=== PATIENT | male | born 1935 | race Two or more races ===

== ENCOUNTER 2017-10-01 13:18 | Outpatient (CLI) | payer OTHER ==
[~2017-10-01 13:18] MED LIST: CELEXA10 MG; GLUCOPHAGE XR500 MG; LEVAQUIN750 MG PO; LOTREL 10-20 M1 EACH; LOTREL 10/20 CA1 CAP; METFORMIN HCL500 MG; NEURONTIN800 MG; SYNTHROID100 MCG; TAMSULOSIN HCL0.4 MG PO
== END 2017-10-01 15:46 | disposition home or self-care (01) ==
LOC: RAD 501 13:18
DX: S40.012D Contusion of left shoulder, subsequent encounter (principal)

== ENCOUNTER 2017-10-17 14:02 | Emergency (ER) | payer OTHER ==
[~2017-10-17] VITALS: Ht 170.2 cm; Wt 85.3 kg
[2017-10-17] MEDS ORDERED: CLONAZEPAM1 M1 (14:47)
[2017-10-17] MEDS ORDERED: KETO10TA2 PO (18:32)
== END 2017-10-17 20:10 | disposition home or self-care (01) ==
LOC: ER 14:02
DX: M54.32 Sciatica, left side (principal)

== ENCOUNTER 2017-10-20 16:39 | Emergency (ER) | payer OTHER ==
[~2017-10-20] VITALS: Ht 152.4 cm; Wt 83.5 kg
[~2017-10-20 16:39] MED LIST changes: +CLONAZEPAM1 M1; +KETO10TA2 PO
== END 2017-10-20 21:00 | disposition home or self-care (01) ==
LOC: ER 16:39
DX: M51.27 Other intervertebral disc displacement, lumbosacral region (principal)

== ENCOUNTER 2019-02-10 11:45 | Emergency (ER) | payer OTHER ==
[~2019-02-10] VITALS: Ht 170.2 cm; Wt 74.4 kg
[2019-02-10] MEDS ORDERED: PROSCAR5 MG PO (12:42)
[2019-02-10] MEDS ORDERED: REQUIP4 MG PO (12:42)
[2019-02-10] MEDS ORDERED: ABILIFY2 MG PO (12:42)
[2019-02-10] MEDS ORDERED: [UNRECOGNIZED DRUG - OTHER] (12:43)
== END 2019-02-10 15:58 | disposition home or self-care (01) ==
LOC: ER 11:45
DX: S22.42XA Multiple fractures of ribs, left side, initial encounter for closed fracture (principal); M54.5 Low back pain; S30.0XXS Contusion of lower back and pelvis, sequela; W18.09XS Striking against other object with subsequent fall, sequela

== ENCOUNTER 2019-10-24 17:28 | Emergency (ER) | payer OTHER ==
[~2019-10-24] VITALS: Ht 170.2 cm; Wt 90.7 kg
[~2019-10-24 17:28] MED LIST changes: +ABILIFY2 MG PO; +PROSCAR5 MG PO; +REQUIP4 MG PO; +[UNRECOGNIZED DRUG - OTHER]
[2019-10-24] MEDS ORDERED: SYNTHROID137 MCG (17:55)
[2019-10-24] MEDS ORDERED: TRAZODONE HCL150 MG (17:56)
[2019-10-24] MEDS ORDERED: IPRATROPIU0.2 MG/1 M (17:57)
== END 2019-10-24 21:21 | disposition home or self-care (01) ==
LOC: ER 17:28
DX: E86.0 Dehydration (principal); R53.1 Weakness; G30.8 Other Alzheimer's disease; F02.80 Dementia in other diseases classified elsewhere, unspecified severity, without behavioral disturbance, psychotic disturbance, mood disturbance, and anxiety; Z86.73 Personal history of transient ischemic attack (TIA), and cerebral infarction without residual deficits

== ENCOUNTER 2020-01-30 11:16 | Emergency (ER) | payer OTHER ==
[~2020-01-30] VITALS: Ht 170.2 cm; Wt 74.4 kg
[~2020-01-30 11:16] MED LIST changes: +IPRATROPIU0.2 MG/1 M; +SYNTHROID137 MCG; +TRAZODONE HCL150 MG
== END 2020-01-30 21:04 | disposition home or self-care (01) ==
LOC: ER 11:16
DX: M88.88 Osteitis deformans of other bones (principal)

== ENCOUNTER 2020-02-14 08:41 | Emergency (ER) | payer OTHER ==
[~2020-02-14] VITALS: Ht 175.3 cm; Wt 109.8 kg
[2020-02-14] MEDS ORDERED: SYNTHROID137 MCG (09:51)
[2020-02-14] MEDS ORDERED: WELLBUTRIN XL300 MG (09:51)
[2020-02-14] MEDS ORDERED: PROTONIX40 MG (09:52)
[2020-02-14] MEDS ORDERED: DERMACINRX5000 UNIT (09:52)
[2020-02-14] MEDS ORDERED: GABAPENTIN800 M1 (09:52)
[2020-02-14] MEDS ORDERED: PROSCAR5 MG (09:53)
[2020-02-14] MEDS ORDERED: NAMENDA XR28 MG (09:53)
[2020-02-14] MEDS ORDERED: TOLTERODINE TART4 MG (09:53)
[2020-02-14] MEDS ORDERED: LOTREL 5-10 MG1 CAP (09:53)
[2020-02-14] MEDS ORDERED: TRAZODONE HCL150 MG PO (09:54)
[2020-02-14] MEDS ORDERED: REQUIP0.25 MG (09:55)
[2020-02-14] MEDS ORDERED: DURAGESIC1 EAC1 (09:57)
== END 2020-02-14 14:16 | disposition home or self-care (01) ==
LOC: ER 08:41
DX: R55 Syncope and collapse (principal); Z03.818 Encounter for observation for suspected exposure to other biological agents ruled out

== ENCOUNTER 2020-02-16 13:48 | Inpatient (IN) | payer OTHER ==
[~2020-02-16] VITALS: Ht 172.7 cm; Wt 99.8 kg
[~2020-02-16 13:48] MED LIST changes: +DERMACINRX5000 UNIT; +DURAGESIC1 EAC1; +GABAPENTIN800 M1; +LOTREL 5-10 MG1 CAP; +NAMENDA XR28 MG; +PROSCAR5 MG; +PROTONIX40 MG; +REQUIP0.25 MG; +TOLTERODINE TART4 MG; +TRAZODONE HCL150 MG PO; +WELLBUTRIN XL300 MG
[2020-02-16] MEDS ORDERED: WELLBUTRIN XL150 M1 PO (14:05)
[2020-02-16] MEDS ORDERED: [UNRECOGNIZED DRUG - OTHER] PO (14:05)
[2020-02-16] MEDS ORDERED: CLONAZEPAM0.5 M1 PO (14:05)
[2020-02-16] MEDS ORDERED: SEROQUEL50 MG PO (14:06)
== END 2020-02-19 19:10 | disposition home or self-care (01) | DRG 723 ==
LOC: ER 13:48 → MEDI 22:54 → SEC-K 22:54 → MEDI 02-17 02:03 → MEDJ 02-17 02:03 → MEDI 02-19 19:10
PROVIDERS: ADMIT Internal Medicine; ATTEND Internal Medicine
PROC: 3E0F7GC Introduction of Other Therapeutic Substance into Respiratory Tract, Via Natural or Artificial Opening (ICD-10-PCS; 2020-02-16)
PROC: BV49ZZZ Ultrasonography of Prostate and Seminal Vesicles (ICD-10-PCS; principal; 2020-02-18)
PROC: CW1N1ZZ Planar Nuclear Medicine Imaging of Whole Body using Technetium 99m (Tc-99m) (ICD-10-PCS; 2020-02-18)
DX: C61 Malignant neoplasm of prostate (principal); C79.51 Secondary malignant neoplasm of bone; M48.57XA Collapsed vertebra, not elsewhere classified, lumbosacral region, initial encounter for fracture; G89.3 Neoplasm related pain (acute) (chronic); E86.0 Dehydration; N40.1 Benign prostatic hyperplasia with lower urinary tract symptoms; G25.81 Restless legs syndrome; E03.8 Other specified hypothyroidism; I10 Essential (primary) hypertension; G30.8 Other Alzheimer's disease; F02.80 Dementia in other diseases classified elsewhere, unspecified severity, without behavioral disturbance, psychotic disturbance, mood disturbance, and anxiety